=== PATIENT | male | born 1980 | race Caucasian/White ===

== ENCOUNTER 2016-10-01 11:39 | Inpatient (IN) | payer OTHER ==
[2016-10-01 12:25] VITALS: BMI 24.8
--- NOTE | 2016-10-01 14:37 | HP ---
Admission ROS [facility] - [facility] Chief Complaint: I am here to receive rehab for further tx after getting detox at [facility] Allergies/Adverse Reactions: Allergies Allergy/AdvReac Type Severity Reaction Status Date / Time SEAFOOD Allergy Severe Swelling Uncoded 10/01/16 13:47 NKDA Allergy Uncoded 10/01/16 13:47 History of Present Illness: pt was at [facility] for detox for the past 5 days discharged today and is here for rehab for further tx. Exam Limitations: No Limitations - Ebola screening Have you traveled outside of the country in the last 21 days: No Have you had contact with anyone from an Ebola affected area: No Have you been sick,other than usual withdrawal symptoms: No Do you have a fever: No - Review of Systems Constitutional: Loss of Appetite, Changes in sleep, Unintentional Wgt. Loss EENT: reports: Nose Congestion Respiratory: reports: Cough Cardiac: reports: No Symptoms Reported GI: reports: Poor Appetite, Poor Fluid Intake : reports: No Symptoms Reported Musculoskeletal: reports: No Symptoms Reported Integumentary: reports: Flushing, Sweating Neuro: reports: Headache Endocrine: reports: Flushing Hematology: reports: No Symptoms Reported Psychiatric: reports: Judgement Intact, Mood/Affect Appropiate, Orientated x3, Agitated, Anxious Other Systems: Reviewed and Negative Patient History - Patient Medical History Hx Anemia: No Hx Asthma: Yes (albuterol) Hx Chronic Obstructive Pulmonary Disease (COPD): No Hx Cancer: No Hx Cardiac Disorders: No Hx Congestive Heart Failure: No Hx Hypertension: No Hx Hypercholesterolemia: No Hx Pacemaker: No HX Cerebrovascular Accident: No Hx Seizures: No Hx Dementia: No Hx Diabetes: No Hx Gastrointestinal Disorders: No Hx Liver Disease: No Hx Genitourinary Disorders: No Hx Sexually Transmitted Disorders: No Hx Renal Disease (ESRD): No Hx Thyroid Disease: No Hx Human Immunodeficiency Virus (HIV): No (negative) Hx Hepatitis C: No (negative) Hx Depression: No Hx Suicide Attempt: No (denies) Hx Bipolar Disorder: No Hx Schizophrenia: No - Patient Surgical History Past Surgical History: Yes Hx Abdominal Surgery: Yes (explortory abd sx 1996) - PPD History Previous Implant?: Yes Documented Results: Negative w/o proof PPD to be Administered?: Yes - Reproductive History Patient is a Female of Child Bearing Age (11 -55 yrs old): No - Smoking Cessation Smoking history: Current every day smoker Have you smoked in the past 12 months: Yes Aproximately how many cigarettes per day: 10 Hx Chewing Tobacco Use: No Initiated information on smoking cessation: Yes 'Breaking Loose' booklet given: 10/01/16 - Substance & Tx. History Hx Alcohol Use: Yes Hx Substance Use: Yes Substance Use Type: Alcohol, Cocaine Hx Substance Use Treatment: Yes - Substances Abused Alcohol Route: Oral Frequency: 3-6 times per week Amount used: 1 pint vodka/rum/ 2 40oz beer Age of first use: 14 Date of Last Use: 09/27/16 Cocaine Route: Inhalation Frequency: 3-6 times per week Amount used: 2 bags Age of first use: 14 Date of Last Use: 09/27/16 Family Disease History - Family Disease History Family History: Denies Family Disease History: CA: Grandparent, Mother (vaginal CA in remission) Admission Physical Exam [facility] - Vital Signs Vital Signs: Vital Signs - 24 hr 10/01/16 12:24 Temperature 97.9 F Pulse Rate 103 H Respiratory 18 Rate Blood Pressure 130/79 - Physical General Appearance: Yes: Moderate Distress, Irritable, Sweating, Anxious HEENTM: Yes: Normal Voice, Nasal Congestion Respiratory: Yes: Lungs Clear, Normal Breath Sounds, No Respiratory Distress Neck: Yes: No masses,lesions,Nodules Breast: Yes: Within Normal Limits Cardiology: Yes: Regular Rhythm, Regular Rate, S1, S2, Tachycardia Abdominal: Yes: Non Tender, Soft Genitourinary: Yes: Within Normal Limits Back: Yes: Normal Inspection Musculoskeletal: Yes: full range of Motion, Gait Steady Extremities: Yes: Normal Capillary Refill Neurological: Yes: Fully Oriented, Alert, Normal Response Integumentary: Yes: Normal Color Lymphatic: Yes: Within Normal Limits - Diagnostic (1) Alcohol abuse Current Visit: Yes Status: Chronic (2) Asthma Current Visit: Yes Status: Chronic Qualifiers: Asthma severity: mild intermittent (3) Cocaine dependence Current Visit: Yes Status: Chronic Qualifiers: Substance use status: uncomplicated Qualified Code(s): F14.20 - Cocaine dependence, uncomplicated (4) Nicotine dependence Current Visit: Yes Status: Chronic Qualifiers: Nicotine product type: cigarettes Substance use status: uncomplicated Qualified Code(s): F17.210 - Nicotine dependence, cigarettes, uncomplicated Cleared for Admission [facility] - Detox or Rehab [facility] Level of Care: Medically Managed Claeared for Rehab Admission: Yes [facility] Breath Alcohol Content Breath Alcohol Content: 0 Urine Drug Screen - Results Drug Screen Negative: No Urine Drug Screen Results: BZO-Benzodiazepines
[2016-10-01] MEDS ORDERED: guaiFENesin/D-METHORPHAN HB 10 ML UNIT-DOSE CUPS PO PRN (14:43)
[2016-10-01] MEDS ORDERED: NICOTINE POLACRILEX 4 MG GUM BUC PRN (14:43)
[2016-10-01] MEDS ORDERED: MAGNESIUM CITRATE 300 ML BOTTLE PO PRN (14:43)
[2016-10-01] MEDS ORDERED: MAGNESIUM HYDROX 2400MG/30ML ORAL SUSPENSION 30 ML CUP PO PRN (14:43)
[2016-10-01] MEDS ORDERED: ACETAMINOPHEN 325 MG TABLET (FP) PO PRN (14:43)
[2016-10-01] MEDS ORDERED: P-EPHED 60MG/TRIPROLIDI 2.5MG TABLET PO PRN (14:43)
[2016-10-01] MEDS ORDERED: MAG HYDROX/AL HYDROX/SIMETH 30 ML UNIT-DOSE CUP PO PRN (14:43)
[2016-10-01] MEDS ORDERED: LOPERAMIDE HCL 2 MG CAPSULE PO PRN (14:43)
[2016-10-01] MEDS ORDERED: MENTHOL/PHENOL 1 EACH UD MM PRN (14:43)
[2016-10-01] MEDS ORDERED: ALBUTEROL SO4 6.7 GM HFA INHALER IH PRN (14:44)
[2016-10-01] MEDS ORDERED: TUBERCULIN PPD 5 TU/0.1ML VIAL ID ONE (16:49)
[2016-10-01] MEDS: IBUPROFEN 400 MG TABLET (FP) PO PRN (21:31)
[2016-10-01] MEDS: THIAMINE HCL 100 MG TABLET (FP) PO SCH (21:31)
[2016-10-02 03:17] LABS: URINE APPEARANCE CLEAR; URINE BILIRUBIN NEGATIVE (NEGATIVE); URINE BLOOD NEGATIVE (NEGATIVE); URINE COLOR LTYELLOW; URINE GLUCOSE (UA) NEGATIVE (NEGATIVE); URINE KETONE NEGATIVE (NEGATIVE); URINE LEUK ESTERASE NEGATIVE (NEGATIVE); URINE NITRITE NEGATIVE (NEGATIVE); URINE PROTEIN NEGATIVE (NEGATIVE); URINE UROBILINOGEN NEGATIVE E.U./dl (0.2-1.0)
[2016-10-02] MEDS: hydrOXYzine PAMOATE 50 MG CAPSULE (FP) PO PRN (07:07)
[2016-10-02] MEDS: IBUPROFEN 400 MG TABLET (FP) PO PRN ×2 (08:37→21:16)
[2016-10-02] MEDS: PRENATAL VITAMINS W/ FOLIC ACID TABLET (FP) PO SCH (09:44)
[2016-10-02 11:10] LABS: MCH 32.1 pg (25.7-33.7); MCHC 32.7 g/dl (32.0-35.9); MEAN CELL VOLUME 98.1 fl (80-96); MEAN PLT VOLUME 9.3 fl (7.5-11.1); PLATELET COUNT 212 K/MM3 (134-434); RDW 13.9 % (11.9-15.9); WHITE BLOOD COUNT 7.7 K/mm3 (4.0-10.0)
[2016-10-02 11:16] LABS: ALBUMIN 3.8 g/dl (3.4-5.0); CALCIUM 8.7 mg/dL (8.5-10.1)
[2016-10-02 11:21] LABS: ALK PHOS 46 U/L (45-117); ANION GAP 9 (8-16); BILIRUBIN,TOTAL 0.4 mg/dL (0.2-1.0); CO2 27 mmol/L (21-32); GLUCOSE,RANDOM 103 mg/dL (74-106); SGOT/AST 57 U/L (15-37); SGPT/ALT 75 U/L (12-78); TOT PROT 6.9 g/dl (6.4-8.2)
--- NOTE | 2016-10-02 13:35 | EKG ---
Test Reason : Blood Pressure : / mmHG Vent. Rate : 084 BPM Atrial Rate : 084 BPM P-R Int : 130 ms QRS Dur : 096 ms QT Int : 388 ms P-R-T Axes : 053 020 023 degrees QTc Int : 458 ms NORMAL SINUS RHYTHM MINIMAL VOLTAGE CRITERIA FOR LVH, MAY BE NORMAL VARIANT NO PREVIOUS ECGS AVAILABLE Confirmed by LENARD PAEZ MD ([id number]) on 10/02/2016 1:35:36 PM Referred By: Dasha Ramos Confirmed By:LENARD PAEZ MD
[2016-10-02] MEDS: THIAMINE HCL 100 MG TABLET (FP) PO SCH (21:16)
[2016-10-03] MEDS: PRENATAL VITAMINS W/ FOLIC ACID TABLET (FP) PO SCH (09:36)
[2016-10-03] MEDS: IBUPROFEN 400 MG TABLET (FP) PO PRN ×2 (09:38→17:33)
[2016-10-03] MEDS: THIAMINE HCL 100 MG TABLET (FP) PO SCH (21:30)
[2016-10-03] MEDS: diphenhydrAMINE HCL 50 MG CAPSULE PO PRN (21:30)
[2016-10-04] MEDS: PRENATAL VITAMINS W/ FOLIC ACID TABLET (FP) PO SCH (09:26)
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
[2016-10-04] MEDS: hydrOXYzine PAMOATE 50 MG CAPSULE (FP) PO PRN (16:51)
[2016-10-04] MEDS: THIAMINE HCL 100 MG TABLET (FP) PO SCH (21:21)
[2016-10-04] MEDS: diphenhydrAMINE HCL 50 MG CAPSULE PO PRN (21:21)
[2016-10-05] MEDS: PRENATAL VITAMINS W/ FOLIC ACID TABLET (FP) PO SCH (09:38)
[2016-10-05] MEDS: hydrOXYzine PAMOATE 50 MG CAPSULE (FP) PO PRN ×2 (09:39→14:19)
[2016-10-05] MEDS: THIAMINE HCL 100 MG TABLET (FP) PO SCH (21:13)
[2016-10-05] MEDS: diphenhydrAMINE HCL 50 MG CAPSULE PO PRN (21:14)
[2016-10-06] MEDS: PRENATAL VITAMINS W/ FOLIC ACID TABLET (FP) PO SCH (09:32)
[2016-10-06] MEDS: diphenhydrAMINE HCL 50 MG CAPSULE PO PRN (21:34)
[2016-10-06] MEDS: IBUPROFEN 400 MG TABLET (FP) PO PRN (21:34)
[2016-10-06] MEDS: THIAMINE HCL 100 MG TABLET (FP) PO SCH (21:34)
[2016-10-07] MEDS: PRENATAL VITAMINS W/ FOLIC ACID TABLET (FP) PO SCH (09:30)
[2016-10-07] MEDS: IBUPROFEN 400 MG TABLET (FP) PO PRN (09:31)
[2016-10-07] MEDS: diphenhydrAMINE HCL 50 MG CAPSULE PO PRN (21:26)
[2016-10-07] MEDS: THIAMINE HCL 100 MG TABLET (FP) PO SCH (21:26)
[2016-10-08 06:43] VITALS: BP 115/74; PULSE 74; TEMP 97.4
[2016-10-08] MEDS: PRENATAL VITAMINS W/ FOLIC ACID TABLET (FP) PO SCH (09:23)
--- NOTE | 2016-10-08 09:49 | PN ---
Psychiatric Progress Note Vital Signs: Vital Signs Period Temp Pulse Resp BP Sys/[place] Pulse Ox Last 24 Hr 97.4 F 74 16-16 115/74 Date of Session: 10/08/16 Chief Complaint:: discharge visit HPI: Patient has addressed alcohol, cocaine and nicotine dependence. ROS: Asthma medically managed. Current Medications: Active Medications Generic Name Dose Route Start Last Admin Trade Name Freq PRN Reason Stop Dose Admin Acetaminophen 650 mg 10/01/16 14:43 Tylenol - PO Q4H PRN PAIN Al Hydroxide/Mg Hydroxide 30 ml 10/01/16 14:43 10/06/16 15:34 Mylanta Oral Suspension - PO 30 ml Q6H PRN Administration DYSPEPSIA Albuterol Sulfate 2 puff 10/01/16 14:44 Ventolin Hfa Inhaler - IH Q4H PRN ASTHMA Diphenhydramine HCl 50 mg 10/01/16 14:43 10/07/16 21:26 Benadryl - PO 50 mg HSMR1 PRN Administration INSOMNIA Eucalyptus/Menthol/Phenol/Sorbitol 1 each 10/01/16 14:43 Cepastat Lozenge - MM Q4H PRN SORE THROAT Guaifenesin 10 ml 10/01/16 14:43 Robitussin Dm - PO Q6H PRN COUGH Hydroxyzine Pamoate 50 mg 10/01/16 14:43 10/05/16 14:19 Vistaril - PO 50 mg Q4H PRN Administration AGITATION Ibuprofen 800 mg 10/01/16 14:43 10/07/16 09:31 Motrin - PO 800 mg Q8H PRN Administration SEVERE PAIN Loperamide HCl 4 mg 10/01/16 14:43 Imodium - PO Q6H PRN DIARRHEA Magnesium Citrate 300 ml 10/01/16 14:43 Citroma - PO Q48H PRN CONSTIPATION Magnesium Hydroxide 30 ml 10/01/16 14:43 Milk Of Magnesia - PO DAILY PRN CONSTIPATION Nicotine Polacrilex 4 mg 10/01/16 14:43 Nicorette Gum - BUC Q2H PRN NICOTINE REPLACEMENT RX Multivit/Folic Acid/Iron 1 tab 10/02/16 10:00 10/08/16 09:23 Vitamins (Sjr) - PO 1 tab DAILY MARLENE Administration Pseudoephedrine/Triprolidine 1 combo 10/01/16 14:43 Actifed - PO TID PRN NASAL CONGESTION Thiamine HCl 100 mg 10/01/16 22:00 10/07/16 21:26 Vitamin B1 - PO 100 mg HS MARLENE Administration Current Side Effect: No Lab tests ordered: No Lab tests reviewed: Yes Provider note:: Patient has completed a modified treatment program and met short term goals. He will continue to address his issues at [facility] outpatient [facility]. He gained insight into his problem and verbalized his motivation to stay sober. Patient is stable for discharge. Total face to face time:: 10 Mental Status Exam - Mental Status Exam Alert and Oriented to: Time, Place, Person Cognitive Function: Good Patient Appearance: Well Groomed Mood: Hopeful Affect: Mood Congruent Patient Behavior: Appropriate, Cooperative Speech Pattern: Clear, Appropriate Voice Loudness: Normal Thought Process: Intact, Goal Oriented Thought Disorder: Not Present Hallucinations: Denies Suicidal Ideation: Denies Homicidal Ideation: Denies Insight/Judgement: Fair Sleep: Fair Appetite: Fair Muscle strength/Tone: Normal Gait/Station: Normal Psychiatric Treatment Plan - Problem List (1) Cocaine dependence Current Visit: Yes Qualifiers: Substance use status: uncomplicated Qualified Code(s): F14.20 - Cocaine dependence, uncomplicated (2) Nicotine dependence Current Visit: Yes Qualifiers: Nicotine product type: cigarettes Substance use status: uncomplicated Qualified Code(s): F17.210 - Nicotine dependence, cigarettes, uncomplicated (3) Alcohol dependence Current Visit: Yes
== END 2016-10-08 10:20 | disposition home or self-care (01) | DRG 751 ==
LOC: YASAS 11:39 → Y5N 14:22
PROVIDERS: ADMIT Psychiatry & Neurology Psychiatry; ATTEND Psychiatry & Neurology Psychiatry
PROC: HZ42ZZZ Group Counseling for Substance Abuse Treatment, Cognitive-Behavioral (ICD-10-PCS; principal; 2016-10-08)
DX: F10.20 Alcohol dependence, uncomplicated (principal); F14.20 Cocaine dependence, uncomplicated; F17.210 Nicotine dependence, cigarettes, uncomplicated; J45.20 Mild intermittent asthma, uncomplicated
CPT/HCPCS: 36415; 80053; 81003; 85027; 86593; 93005; 93010